=== PATIENT | male | born 1965 | race Caucasian/White ===

== ENCOUNTER → 2016-09-13 | Day surgery (SDC) | payer OTHER ==
[~2016-09-13] MED LIST: DICL75TA PO; GABA-586 PO; LIDOCAINE 1%/EPI 1:100,000 20 ML VIAL. IJ ONE; OXYC15TA PO; TAMS0.4C97 PO
--- NOTE | 2016-09-13 08:26 | PDOC ---
BRIEF OPERATIVE NOTE Date: Sep 13, 2016 Pre-Op Diagnosis Left elbow lipoma Post-Op Diagnosis Same Procedure Performed Excision of left elbow mass Surgeon David Anesthesia Type: Local Blood Loss 5ml Specimens Obtained Left elbow mass Findings as above Complications None WALKER KELLEY MD Sep 13, 2016 08:26
--- NOTE | 2016-09-13 08:27 | DISCH ---
DISCHARGE INSTRUCTIONS Condition on Discharge Condition on Discharge: Stable Activity After Discharge Activity Instructions for Disc: No restrictions Diet after Discharge Diet after Discharge: Regular Wound Incision Care Other wound/incision instructi: May shower in 24 hours Contacting the after DC Call your doctor for: If your condition worsens Follow-Up Follow up with: Dr Kelley in 2 weeks WALKER KELLEY MD Sep 13, 2016 08:27
[2016-09-13 09:01] VITALS: BP 142/79
--- NOTE | 2016-09-13 09:08 | OP ---
DATE OF SURGERY: 09/13/2016 PREOPERATIVE DIAGNOSIS: Left elbow lipoma. POSTOPERATIVE DIAGNOSIS: Left elbow lipoma. PROCEDURE: Excision of lipoma. SURGEON: Stan Kelley M.D. INDICATIONS: The patient is a 51-year-old gentleman, who has complained of a mass over his left elbow that has been increase ____ and occasionally painful. Procedure of excision was explained to the patient in detail. Risks, benefits were also discussed including bleeding, infection. Alternatives of procedure were also discussed with the patient, who seemed to understand and gave verbal and written consent to have the procedure performed. DESCRIPTION OF PROCEDURE: The patient was taken to the minor's procedure room and placed in the supine position and his left elbow was prepped and draped in usual sterile fashion using ChloraPrep. An area over the mass injected with 1% lidocaine with epinephrine. Incision was made with 15 blade scalpel over this mass and the lipoma was extruded and the base was sharply excised. The lipomatous mass approximately 3 x 3 cm and sent for pathology. The wound was closed in 2 layers, deep layer with running 3-0 Vicryl and the skin was reapproximated with 4-0 subcuticular Monocryl. Mastisol, Steri-Strips and island dressing were applied. The patient tolerated procedure well and was discharged to home in stable condition. All sponge, instrument counts listed as correct. Estimated blood loss 5 mL. STAN KELLEY MD DR: YOLANDA/taqueria JOB#: [id number] / [id number] ABHIJEET Puga MD
--- NOTE | 2016-09-14 16:42 | PATHOLOGY ---
PATHOLOGY REPORT * * * * * * * * FINAL DIAGNOSIS: Fibroadipose tissue, left arm lesion: - Lipoma. COMMENT: There is no evidence of malignancy. (JPM:csd; d/t: 09/14/2016) REPORT ELECTRONICALLY SIGNED BY: Sami Augustin M.D. DATE/TIME: 09/14/2016 16:41 * * * * * * * * GROSS PATHOLOGY: Received in formalin labeled "Wilian Neves and lesion left arm," is a segment of lobulated fibroadipose tissue measuring 3.2 x 3.2 x 0.7 cm in maximum dimensions. Sectioning reveals homogeneous, bright yellow cut surfaces. Fur Tailor tissue is submitted in cassette A1. (TTL; 09/13/2016) INITIAL CPT CODE(S): A; 33191 Professional services performed [place] [address] Technical services performed by [facility] at [address] [place] [address]. SPECIMEN(S) RECEIVED: A.Lesion left arm CLINICAL HISTORY: Lipoma left arm PATIENT: WILIAN NEVES /AGE: 801/31/1965 (Age: 51) PATIENT #: [id number] ALT CASE #: SPECIMEN COLLECTION DATE: 09/13/2016 SPECIMEN RECEIVED DATE: 09/13/2016 [facility] - [address] [place] [address] - PHONE: [phone] * * * END OF REPORT * * *
== END | disposition home or self-care (01) ==
LOC: SURG 07:01
PROVIDERS: ATTEND Surgery
DX: D17.22 Benign lipomatous neoplasm of skin and subcutaneous tissue of left arm (principal); Z87.39 Personal history of other diseases of the musculoskeletal system and connective tissue; Z87.891 Personal history of nicotine dependence
CPT/HCPCS: 11403; 12032; 88304; J3490